=== PATIENT | female | born 1945 | race Caucasian/White ===

== ENCOUNTER 2023-10-08 05:39 | Day surgery (SDC) | payer OTHER ==
[~2023-10-08] VITALS: Ht 157.5 cm; Wt 75.0 kg
[~2023-10-08 05:39] MED LIST: KETOROLAC TROMETHAMINE 0.5% 5 ML OPHTHALMIC SOLUTION ONE; MOXIFLOXACIN HCL 0.5% 3 ML OPHTHALMIC SOLUTION ONE; PHENYLEPHRINE HCL 2.5% 2 ML OPHTHALMIC SOLUTION ONE; RINGERS SOLUTION,LACTATED 500 ML IV ONE; TROPICAMIDE 1% 2 ML OPHTHALMIC SOLUTION ONE
[2023-10-08] MEDS ORDERED: MIDAZOLAM HCL 2 MG/2 ML VIAL IVP ONE (05:40)
[2023-10-08] MEDS ORDERED: FentaNYL CITRATE PF 100 MCG/2 ML VIAL IVP ONE (05:40)
[2023-10-08] MEDS ORDERED: CHONDR SULF A SOD/HYALURONATE 1.05 ML KIT IO ONE (05:40)
[2023-10-08] MEDS ORDERED: BALANCED SALT 15 ML OPHTHALMIC IRRIG.SOLN IO ONE (05:40)
[2023-10-08] MEDS: KETOROLAC TROMETHAMINE 0.5% 5 ML OPHTHALMIC SOLUTION OD SCH (06:13)
[2023-10-08] MEDS: TROPICAMIDE 1% 2 ML OPHTHALMIC SOLUTION OD SCH (06:13)
[2023-10-08] MEDS: PHENYLEPHRINE HCL 2.5% 2 ML OPHTHALMIC SOLUTION OD SCH (06:14)
[2023-10-08] MEDS: MOXIFLOXACIN HCL 0.5% 3 ML OPHTHALMIC SOLUTION OD SCH (06:14)
[2023-10-08] MEDS ORDERED: POVIDONE-IODINE 5% 30 ML OPHTHALMIC SOLUTION ONE (06:29)
[2023-10-08] MEDS ORDERED: BALANCED SALT 15 ML OPHTHALMIC IRRIG.SOLN ONE (06:29)
[2023-10-08] MEDS ORDERED: LIDOCAINE/PF 1% 2 ML VIAL ONE (06:32)
[2023-10-08] MEDS: RINGERS SOLUTION,LACTATED 500 ML IV ONE (07:01)
[2023-10-08 07:05] LABS: GLUCOMETER DEV NAME(LOC) SDS.; GLUCOSE,POINT OF CARE 119 MG/DL (70-110)
[2023-10-08] MEDS ORDERED: FOLI0.4T14 PO (07:40)
[2023-10-08] MEDS ORDERED: ICOS0.5C PO (07:40)
[2023-10-08] MEDS ORDERED: FAMO20 PO (07:40)
[2023-10-08] MEDS ORDERED: FERR325T27 PO (07:40)
[2023-10-08] MEDS: TETRACAINE HCL/PF 0.5% 4 ML OPHTHALMIC SOLUTION ONE (07:40)
[2023-10-08] MEDS ORDERED: SEMA3TAB4 PO (07:40)
[2023-10-08] MEDS ORDERED: METF-1211 PO (07:40)
[2023-10-08] MEDS ORDERED: ATOR20TA PO (07:40)
[2023-10-08] MEDS ORDERED: ALLO-97 PO (07:40)
[2023-10-08] MEDS ORDERED: ASPI-1444 PO (07:40)
[2023-10-08] MEDS: EPINEPHrine 1:1,000 [1 MG/ML] VIAL ONE (08:00)
[2023-10-08] MEDS ORDERED: OXYGEN THERAPY IH SCH ×2 (08:00)
== END 2023-10-08 09:15 | disposition home or self-care (01) ==
LOC: SURGERY 05:39
PROVIDERS: ATTEND Ophthalmology
DX: E11.36 Type 2 diabetes mellitus with diabetic cataract (principal); H25.11 Age-related nuclear cataract, right eye; Z96.659 Presence of unspecified artificial knee joint; Z79.899 Other long term (current) drug therapy
CPT/HCPCS: 66984; 93005; 82962; J0171; J3010; J3490; J2250; Q9967; J7120; V2632